=== PATIENT | female | born 1985 | race Caucasian/White ===

== ENCOUNTER 2017-01-28 00:22 | Emergency (ER) | payer OTHER ==
--- NOTE | 2017-01-28 00:39 | PDOC ---
History of Present Illness - General History Source: Patient, Family, Old Records Exam Limitations: No Limitations - History of Present Illness Initial Comments: 01/28/17 01:30 The patient is a 31 year old female, with no significant past medical history, who presents to the emergency department with a worsening itchy rash to the face for the past two weeks. The patient states that the rash initially began on her left ear and has spread to her face as a result of her scratching. The patient reports that she has been applying an OTC medicated cream to the affected areas, with minimal relief of symptoms. The patient denies any known allergies. The patient denies fever or chills. The patients primary language is [place] Citizen, a family member at the bedside is translating. Allergies: None reported. Past Surgical History: None reported. Social History: Non smoker. Denies alcohol or drug use. <Lydia Russo - Last Filed: 01/28/17 01:31> <Zulema Ledesma - Last Filed: 01/28/17 06:35> - General Stated Complaint: RASH Past History <Lydia Russo - Last Filed: 01/28/17 01:31> - Psycho/Social/Smoking Cessation Hx Anxiety: No Suicidal Ideation: No Smoking History: Never smoked Hx Alcohol Use: No Drug/Substance Use Hx: No <Zulema Ledesma - Last Filed: 01/28/17 06:35> - Past Medical History Allergies/Adverse Reactions: Allergies Allergy/AdvReac Type Severity Reaction Status Date / Time No Known Allergies Allergy Verified 01/28/17 00:42 Home Medications: Ambulatory Orders Cephalexin [Keflex] 250 mg PO QID #28 capsule 01/28/17 Diphenhydramine HCl [Benadryl -] 25 mg PO Q8H #30 capsule 01/28/17 Ketoconazole 2% Cream [Nizoral 2% Cream -] 1 applic TP DAILY #30 g 01/28/17 Review of Systems - Review of Systems Able to Perform ROS?: Yes Comments:: 01/28/17 00:56 GENERAL/CONSTITUTIONAL: No fever or chills. No weakness. HEAD, EYES, EARS, NOSE AND THROAT: No change in vision. No ear pain or discharge. No sore throat. CARDIOVASCULAR: No chest pain or shortness of breath. RESPIRATORY: No cough, wheezing, or hemoptysis. GASTROINTESTINAL: No nausea, vomiting, diarrhea or constipation. GENITOURINARY: No dysuria, frequency, or change in urination. MUSCULOSKELETAL: No joint or muscle swelling or pain. No neck or back pain. SKIN: +Rash NEUROLOGIC: No headache, vertigo, loss of consciousness, or change in strength/ sensation. ENDOCRINE: No increased thirst. No abnormal weight change. HEMATOLOGIC/LYMPHATIC: No anemia, easy bleeding, or history of blood clots. ALLERGIC/IMMUNOLOGIC: No hives or skin allergy. <Lydia Russo - Last Filed: 01/28/17 01:31> *Physical Exam - Vital Signs Last Vital Signs Temp Pulse Resp BP Pulse Ox 98.5 F 86 16 145/86 100 01/28/17 00:42 01/28/17 00:42 01/28/17 00:42 01/28/17 00:42 01/28/17 00:42 - Physical Exam Comments: 01/28/17 01:31 GENERAL: Awake, alert, and fully oriented, in no acute distress. HEAD: No signs of trauma. EYES: PERRLA, EOMI, sclera anicteric, conjunctiva clear. ENT: Auricles normal inspection, hearing grossly normal, nares patent, oropharynx clear without exudates. Moist mucosa. NECK: Normal ROM, supple, no lymphadenopathy, JVD, or masses. ABDOMEN: Soft, nontender, normoactive bowel sounds. No guarding, no rebound. No masses. EXTREMITIES: Normal range of motion, no edema. No clubbing or cyanosis. No cords, erythema, or tenderness. NEUROLOGICAL: Cranial nerves II through XII intact. Normal speech, normal gait. SKIN: Pinpoint rash over the forehead with surrounding erythema to the face. <Lydia Russo - Last Filed: 01/28/17 01:31> Medical Decision Making - Medical Decision Making 01/28/17 06:31 Pt comes with fungal infection on her left ear and she spread it to her right medial canthus on her eye. She has been using a cream that now caused allergy/ redness on her face and neck. SHe will go home with benadryl, keflex and antifungal cream. <Zulema Ledesma - Last Filed: 01/28/17 06:35> *DC/Admit/Observation/Transfer - Attestations Scribe Attestion: 01/28/17 00:50 Documentation prepared by Lydia Russo, acting as medical psychotherapist for Zulema Ledesma MD. <Lydia Russo - Last Filed: 01/28/17 01:31> - Discharge Dispostion Admit: No <Zulema Ledesma - Last Filed: 01/28/17 06:35> Diagnosis at time of Disposition: Rash and nonspecific skin eruption, Tinea corporis, Secondary infection - Discharge Dispostion Disposition: HOME Condition at time of disposition: Stable - Prescriptions Prescriptions: Diphenhydramine HCl [Benadryl -] 25 mg PO Q8H #30 capsule Cephalexin [Keflex] 250 mg PO QID #28 capsule Ketoconazole 2% Cream [Nizoral 2% Cream -] 1 applic TP DAILY #30 g - Referrals Referrals: Sapna Leos MD [Staff Physician] - - Patient Instructions Printed Discharge Instructions: DI for Tinea Corporis Print Language: DUTCH - Post Discharge Activity Work/School Note: Back to Work
[2017-01-28 00:44] VITALS: BP 145/86; PULSE 86; TEMP 98.5; BMI 29.2
[2017-01-28] MEDS ORDERED: KETOCONAZOLE 2% CREAM - 60GM TUBE TP ONE (01:00)
[2017-01-28] MEDS ORDERED: CEPHALEXIN MONOHYDRATE 250 MG CAPSULE (FP) PO ONE (01:03)
[2017-01-28] MEDS ORDERED: diphenhydrAMINE HCL 25 MG CAPSULE (FP) PO ONE ×2 (01:05)
[2017-01-28] MEDS ORDERED: CEPHALEXIN MONOHYDRATE 250 MG CAPSULE (FP) ONE (01:23)
== END 2017-01-28 01:36 | disposition home or self-care (01) ==
LOC: JER 00:22
DX: B35.4 Tinea corporis (principal)
CPT/HCPCS: 99282-25

== ENCOUNTER 2021-02-23 17:36 | Emergency (ER) | payer OTHER ==
[2021-02-23 17:42] VITALS: BMI 39.1
[2021-02-23 18:52] VITALS: BP 136/78; PULSE 90; TEMP 98
[2021-02-23 20:48] LABS: EPI CELLS 24 /uL (0-25.1); HYALINE CASTS 2 /uL (0-3.1); PH,URINE 5.5 (5.0-8.0); URINE APPEARANCE CLEAR; URINE BACTERIA 1253 /uL (0-1359); URINE BILIRUBIN NEGATIVE (NEGATIVE); URINE COLOR DK YELLOW; URINE GLUCOSE (UA) NEGATIVE (NEGATIVE); URINE KETONE 1+ (NEGATIVE); URINE LEUK ESTERASE 3+ (NEGATIVE); URINE NITRITE NEGATIVE (NEGATIVE); URINE PROTEIN TRACE (NEGATIVE); URINE RBC 10 /uL (0-23.9); URINE WBC 89 /uL (0-25.8)
== END 2021-02-23 20:45 | disposition home or self-care (01) ==
LOC: JER 17:36
DX: O26.893 Other specified pregnancy related conditions, third trimester (principal); R10.9 Unspecified abdominal pain; Z3A.29 29 weeks gestation of pregnancy
CPT/HCPCS: 81003; 82962; 99281-25

== ENCOUNTER 2022-06-06 04:31 | Day surgery (SDC) | payer OTHER ==
[2022-06-05 17:28] VITALS: BMI 33.2
[2022-06-06] MEDS ORDERED: MIDAZOLAM HCL 2 MG/2 ML SINGLE DOSE VIAL ONE (09:59)
[2022-06-06] MEDS ORDERED: SODIUM CHLORIDE 500 ML IV ONE (10:45)
[2022-06-06] MEDS ORDERED: MIDAZOLAM HCL 5 MG/5 ML - 5 ML VIAL IVPUSH ONE (10:50)
[2022-06-06] MEDS ORDERED: FENTANYL CITRATE/PF 50 MCG/ML VIAL IVPUSH ONE ×2 (10:50→11:00)
[2022-06-06] MEDS ORDERED: MIDAZOLAM HCL 2 MG/2 ML SINGLE DOSE VIAL IVPUSH ONE (11:00)
[2022-06-06 12:12] VITALS: RESP 18
[2022-06-06 15:01] VITALS: BP 123/61; PULSE 78; TEMP 97.9
== END 2022-06-06 14:24 | disposition home or self-care (01) ==
LOC: JRADIR 04:31
PROVIDERS: ATTEND Internal Medicine Gastroenterology
PROC: 0FB03ZX Excision of Liver, Percutaneous Approach, Diagnostic (ICD-10-PCS; principal; 2022-06-06)
DX: K74.3 Primary biliary cirrhosis (principal)
CPT/HCPCS: 47000; 76942-TC; 87899; 88307-TC; 88313-TC

== ENCOUNTER 2023-06-06 00:54 | Emergency (ER) | payer OTHER ==
[2023-06-06 01:07] VITALS: BP 114/71; PULSE 79; RESP 18; TEMP 98.4; BMI 31.8
[2023-06-06 02:38] LABS: HCG,QUALITATIVE URINE Positive
[2023-06-06 02:41] LABS: BASO % 0.5 % (0-2.0); EOS % 0.9 % (0-4.5); EPI CELLS >36 /uL (0-25.1); HEMATOCRIT 37.5 % (32.4-45.2); HEMOGLOBIN 12.6 GM/dL (10.7-15.3); HYALINE CASTS 1 /uL (0-3.1); LYMPH % 32.7 % (8-40); MCH 29.7 pg (25.7-33.7); MCHC 33.6 g/dl (32.0-36.0); MEAN CELL VOLUME 88.4 fl (80-96); MEAN PLT VOLUME 9.5 fl (7.5-11.1); NEUT % 57.9 % (42.8-82.8); PLATELET COUNT 236 10^3/uL (134-434); RBC 4.24 M/mm3 (3.60-5.2); RDW 12.6 % (11.6-15.6); URINE APPEARANCE CLEAR; URINE BACTERIA 3666 /uL (0-1359); URINE BILIRUBIN NEGATIVE (NEGATIVE); URINE COLOR YELLOW; URINE GLUCOSE (UA) NEGATIVE (NEGATIVE); URINE KETONE NEGATIVE (NEGATIVE); URINE LEUK ESTERASE TRACE (NEGATIVE); URINE NITRITE NEGATIVE (NEGATIVE); URINE PROTEIN NEGATIVE (NEGATIVE); URINE RBC 11 /uL (0-23.9); URINE UROBILINOGEN 0.2 mg/dL (0.2-1.0); URINE WBC 75 /uL (0-25.8); WHITE BLOOD COUNT 9.4 K/mm3 (4.0-10.0)
[2023-06-06 03:15] LABS: POTASSIUM 4.1 mmol/L (3.5-5.1)
[2023-06-06 03:17] LABS: CALCIUM 8.6 mg/dL (8.5-10.1)
[2023-06-06 03:18] LABS: BLOOD UREA NITROGEN 12.7 mg/dL (7-18)
[2023-06-06 03:21] LABS: CREATININE 0.6 mg/dL (0.55-1.3)
[2023-06-06 03:22] LABS: BILIRUBIN,TOTAL 0.2 mg/dL (0.2-1)
[2023-06-06 03:23] LABS: TOT PROT 7.1 g/dl (6.4-8.2)
== END 2023-06-06 03:46 | disposition home or self-care (01) ==
LOC: JER 00:54
DX: O20.9 Hemorrhage in early pregnancy, unspecified (principal); O26.891 Other specified pregnancy related conditions, first trimester; R10.30 Lower abdominal pain, unspecified; R11.0 Nausea; Z3A.08 8 weeks gestation of pregnancy
CPT/HCPCS: 36415; 80053; 81003; 84702; 84703; 85025; 86850; 86900; 86901; 87086; 99283-25

== ENCOUNTER 2023-12-19 19:00 | Inpatient (IN) | payer OTHER ==
[2023-12-19 20:34] LABS: BASO % 0.4 % (0-2.0); EOS % 0.3 % (0-4.5); HEMATOCRIT 36.2 % (32.4-45.2); HEMOGLOBIN 11.8 GM/dL (10.7-15.3); LYMPH % 31.2 % (8-40); MCH 29.2 pg (25.7-33.7); MCHC 32.7 g/dl (32.0-36.0); MEAN CELL VOLUME 89.3 fl (80-96); MEAN PLT VOLUME 10.2 fl (7.5-11.1); MONO % 6.9 % (3.8-10.2); NEUT % 61.2 % (42.8-82.8); PLATELET COUNT 115 10^3/uL (134-434); RBC 4.06 M/mm3 (3.60-5.2); RDW 13.9 % (11.6-15.6); WHITE BLOOD COUNT 7.7 K/mm3 (4.0-10.0)
[2023-12-19 20:42] LABS: INR 0.96 (0.83-1.09); PROTHROMBIN TIME (PATIENT) 11.1 SEC (9.7-13.0)
[2023-12-19 20:45] LABS: ACTIVATED PTT 28.6 SECONDS (25.2-36.5)
[2023-12-19] MEDS: DINOPROSTONE 10 MG VAGINAL SUPPOSITORY VG ONE (20:45)
[2023-12-19 21:05] LABS: POTASSIUM 4.6 mmol/L (3.5-5.1)
[2023-12-19 21:06] LABS: CALCIUM 8.9 mg/dL (8.5-10.1)
[2023-12-19 21:07] LABS: BLOOD UREA NITROGEN 13.4 mg/dL (7-18)
[2023-12-19 21:10] LABS: CREATININE 0.6 mg/dL (0.55-1.3)
[2023-12-19 22:50] VITALS: BMI 36.1
[2023-12-20 00:03] LABS: ALBUMIN 2.3 g/dl (3.4-5.0)
[2023-12-20 00:05] LABS: BILIRUBIN,DIRECT 0.2 mg/dL (0.0-0.2)
[2023-12-20 00:08] LABS: BILIRUBIN,TOTAL 0.4 mg/dL (0.2-1); TOT PROT 6.5 g/dl (6.4-8.2)
[2023-12-20] MEDS: ELECTROLYTE-148 SOLN 1,000 ML IV SCH (03:00)
[2023-12-20] MEDS: URSODIOL 300 MG CAPSULE PO SCH (09:04)
[2023-12-20] MEDS ORDERED: OXYTOCIN 30 UNITS in 0.9% NS 30 UNIT/500 ML INFUS.BAG IVPB ONE (10:03)
[2023-12-20] MEDS: OXYTOCIN 30 UNITS in 0.9% NS 30 UNIT/500 ML INFUS.BAG IVPB SCH (10:05)
[2023-12-20] MEDS ORDERED: FENTANYL/BUPIVACAINE/NS/PF - PCEA - 50 ML DISP.SYRIN EP ONE (13:51)
[2023-12-20] MEDS ORDERED: LIDOCAINE HCL 1% PRESERVATIVE FREE - 30ML VIAL ONE (14:30)
[2023-12-20] MEDS ORDERED: OXYTOCIN 20 UNITS in 0.9% NS 20 UNIT/1,000 ML INFUS.BAG IV ONE (14:30)
[2023-12-20] MEDS ORDERED: morphine SULFATE 4 MG/ML VIAL ONE ×2 (14:53→15:00)
[2023-12-20] MEDS: morphine SULFATE 4 MG/ML VIAL IVPUSH ONE ×2 (14:55→15:02)
[2023-12-20] MEDS: OXYTOCIN 20 UNITS in 0.9% NS 20 UNIT/1,000 ML INFUS.BAG IV SCH (15:00)
[2023-12-20] MEDS ORDERED: MISOPROSTOL 200 MCG TABLET ONE (15:03)
[2023-12-20] MEDS: MISOPROSTOL 200 MCG TABLET PR SCH (15:07)
[2023-12-20] MEDS ORDERED: BISACODYL 10 MG SUPP.RECT RC PRN (16:45)
[2023-12-20] MEDS ORDERED: ACETAMINOPHEN 325 MG TABLET (FP) PO PRN (16:45)
[2023-12-20] MEDS ORDERED: BENZOCAINE 28 GM HEMORRHOIDAL OINTMENT TP PRN (16:45)
[2023-12-20] MEDS: BENZOCAINE 20% 57 GM BOTTLE TP PRN (20:25)
[2023-12-20] MEDS: WITCH HAZEL 50% (TUCKS) 40 PAD/JAR PAD TP PRN (20:26)
[2023-12-20 21:53] VITALS: RESP 18
[2023-12-20] MEDS: IBUPROFEN 600 MG TABLET (FP) PO PRN (22:19)
[2023-12-21 08:12] LABS: BASO % 0.4 % (0-2.0); EOS % 0.2 % (0-4.5); HEMATOCRIT 31.4 % (32.4-45.2); HEMOGLOBIN 10.4 GM/dL (10.7-15.3); LYMPH % 22.1 % (8-40); MCH 29.5 pg (25.7-33.7); MEAN CELL VOLUME 89.3 fl (80-96); MEAN PLT VOLUME 10.3 fl (7.5-11.1); MONO % 7.2 % (3.8-10.2); NEUT % 70.1 % (42.8-82.8); PLATELET COUNT 102 10^3/uL (134-434); RBC 3.52 M/mm3 (3.60-5.2); RDW 14.1 % (11.6-15.6); WHITE BLOOD COUNT 12.5 K/mm3 (4.0-10.0)
[2023-12-21] MEDS: PRENATAL VITAMINS W/ FOLIC ACID TABLET (FP) PO SCH (09:32)
[2023-12-21 21:59] VITALS: PULSE 70
[2023-12-21] MEDS ORDERED: SENNOSIDES/DOCUSATE COMBO (SENNA PLUS) TABLET (UD) PO PRN (22:00)
[2023-12-22 09:52] VITALS: BP 114/70; TEMP 98
== END 2023-12-22 11:51 | disposition home or self-care (01) | DRG 560 ==
LOC: JLDR 19:00 → J3W 12-20 16:45
PROVIDERS: ADMIT Obstetrics & Gynecology; ATTEND Obstetrics & Gynecology
PROC: 3E0P7VZ Introduction of Hormone into Female Reproductive, Via Natural or Artificial Opening (ICD-10-PCS; 2023-12-19)
PROC: 10E0XZZ Delivery of Products of Conception, External Approach (ICD-10-PCS; principal; 2023-12-20)
PROC: 0KQM0ZZ Repair Perineum Muscle, Open Approach (ICD-10-PCS; 2023-12-20)
PROC: 0W8NXZZ Division of Female Perineum, External Approach (ICD-10-PCS; 2023-12-20)
DX: O24.429 Gestational diabetes mellitus in childbirth, unspecified control (principal); O70.1 Second degree perineal laceration during delivery; Z3A.37 37 weeks gestation of pregnancy; Z37.0 Single live birth
CPT/HCPCS: 36415; 80048; 80053; 80076; 82962; 85025; 85027; 85610; 85730; 86780; 86850; 86900; 86901; 87389; 88307-TC